=== PATIENT | male | born 1980 | race Caucasian/White ===

== ENCOUNTER → 2016-10-16 09:22 | Outpatient (CLI) | payer OTHER ==
[2015-02-24 08:09] VITALS: BMI 24.2
[~2016-10-16 09:22] MED LIST: CELEXA20 MG PO; COLACE100 MG PO; GLUCOPHAGE500 MG PO; GLUCOTROL 5 MG T5 MG PO; HYDROCODON-ACE1 EAC7 PO; LIPITOR20 MG PO; VANCOMYCIN 1 GM/1 G1 IV; ZOSYN 3.3753.375 G1 IV
== END | disposition home or self-care (01) ==
LOC: D.CT 09:22
DX: R91.1 Solitary pulmonary nodule (principal)